=== PATIENT | male | born 1950 | race Caucasian/White ===

== ENCOUNTER 2016-09-28 11:40 | Emergency (ER) | payer MEDICARE ==
[2016-09-28] MEDS ORDERED: methylPREDNISolone Sod Succ/PF 125 MG/2 ML VIAL ONE (12:06)
[2016-09-28 12:13] LABS: #Basophils 0.2 thou/uL (0.0-0.2); #Eosinphils 0.4 thou/uL (0.0-0.7); #Lymphocytes 2.3 thou/uL (1.20-3.40); #Monocytes 1.4 thou/uL (0.11-0.59); #Neutrophils 13.4 thou/uL (1.40-6.50); %Basophils 1.1 % (0.0-1.0); %Eosinophils 2.1 % (0.0-10.0); %Lymphocytes 13.2 % (21.0-51.0); %Monocytes 7.7 % (0.0-10.0); Mean Corpuscular HGB CONC 33.1 g/dL (32.0-36.0); Mean Corpuscular Hemoglobin 27.8 pg (27.0-31.0); Mean Platelet Volume 11.2 fL (7.4-10.4); Platelet Count 246 thou/uL (130-400); Red Blood Cell (RBC) Count 5.41 mill/uL (4.70-6.10); White Blood Cell (WBC) Count 17.6 thou/uL (4.8-10.8)
[2016-09-28 12:28] LABS: Troponin I 0.013 ng/mL (< 0.028)
[2016-09-28 12:29] LABS: ALT (SGPT) 23 U/L (0-55); AST (SGOT) 14 U/L (5-34); Albumin 4.4 g/dL (3.4-4.8); Alkaline Phosphatase 90 U/L (40-150); Anion Gap 18 mmol/L (10-20); BUN (Urea Nitrogen) 16 mg/dL (8.4-25.7); Bilirubin, Total 0.8 mg/dL (0.2-1.2); CK (CPK) 56 U/L (30-200); Calc. Creatinine Clearance 0 mL/min (70-130); Calcium 9.5 mg/dL (7.8-10.44); Carbon Dioxide 19 mmol/L (23-31); Chloride 104 mmol/L (98-107); Estimated GFR-MDRD 73; Globulin 3.1 g/dL (2.4-3.5); Glucose 126 mg/dL (80-115); Protein, Total 7.5 g/dL (5.8-8.1); Sodium 137 mmol/L (136-145)
--- NOTE | 2016-09-28 13:00 | RAD ---
PORTABLE CHEST 1 VIEW: DATE: 09/28/16. TIME: 11:59 a.m. HISTORY: Shortness of breath and cough. FINDINGS/IMPRESSION: The heart size is prominent. No confluent areas of consolidation, pneumothorax, charisse pulmonary jd ma, or pleural effusions are seen. There is no evidence of charisse pulmonary edema. POS: [facility]
== END 2016-09-28 13:31 | disposition short-term general hospital (02) ==
LOC: NAV ERS 11:40
DX: R06.02 Shortness of breath (principal); R07.1 Chest pain on breathing; I10 Essential (primary) hypertension
CPT/HCPCS: 36415; 71010; 80053; 82553; 83880; 84484; 85025; 85379; 93005; 94640; 96374; J2930; J7620

== ENCOUNTER 2017-05-01 13:58 | Emergency (ER) | payer MEDICARE ==
--- NOTE | 2017-05-01 15:26 | RAD ---
RIGHT HIP 2 VIEWS: Date: 05/01/17 HISTORY: Hip pain status post fall. FINDINGS: There are no signs of fracture or dislocation. IMPRESSION: Negative right hip. POS: [facility]
--- NOTE | 2017-05-01 15:28 | RAD ---
AP PELVIS: Date: 05/01/17 HISTORY: Pelvic pain. FINDINGS: The pelvic ring is intact without evidence of fracture. SI joints are symmetric. No diastasis of the symphysis. Minimal arthritic changes of the hips are noted. IMPRESSION: No acute findings. POS: [facility]
--- NOTE | 2017-05-01 15:33 | RAD ---
SACRUM AND COCCYX FOUR VIEWS 05/01/17 HISTORY: Patient is status post fall. The most distal coccygeal segment on the lateral view is somewhat dorsally displaced. However, in rev iewing a 2012 CT almond paste mixer examination, this is similar to that study and therefore appears chronic. I d o not see any definite signs of a fracture. These images do not optimally evaluate the sacrum. A pelv is film was also performed which does not show any sacral abnormality. IMPRESSION: Unremarkable sacrum and coccyx. No acute injury. POS: [facility]
== END 2017-05-01 15:10 | disposition home or self-care (01) ==
LOC: NAV ERS 13:58
DX: S30.0XXA Contusion of lower back and pelvis, initial encounter (principal); S80.811A Abrasion, right lower leg, initial encounter; F20.9 Schizophrenia, unspecified; W19.XXXA Unspecified fall, initial encounter
CPT/HCPCS: 72170; 72220

== ENCOUNTER 2017-12-18 18:56 | Emergency (ER) | payer MEDICARE ==
[2017-12-18 19:33] LABS: #Basophils 0.1 thou/uL (0.0-0.2); #Eosinphils 0.3 thou/uL (0.0-0.7); #Lymphocytes 1.9 thou/uL (1.20-3.40); #Monocytes 0.8 thou/uL (0.11-0.59); %Basophils 1.7 % (0.0-1.0); %Eosinophils 3.3 % (0.0-10.0); %Monocytes 10.2 % (0.0-10.0); %Neutrophils 61.8 % (42.0-75.0); Hemoglobin 14.6 g/dL (14.0-18.0); Mean Corpuscular HGB CONC 32.9 g/dL (32.0-36.0); Mean Corpuscular Hemoglobin 26.8 pg (27.0-31.0); Mean Corpuscular Volume 81.2 fL (78.0-98.0); Mean Platelet Volume 11.1 fL (7.4-10.4); Platelet Count 204 thou/uL (130-400); RBC Distribution Width 12.6 % (11.5-14.5); Red Blood Cell (RBC) Count 5.47 mill/uL (4.70-6.10)
--- NOTE | 2017-12-18 19:37 | RAD ---
TWO VIEWS OF THE CHEST: 12/18/17 COMPARISON: 08/12/17 HISTORY: Cough and shortness of breath for five years. Syncope this morning. FINDINGS: Two views of the chest show normal sized cardiomediastinal silhouette. There is no evidence of consol idation, mass, or pleural effusion. The bones are unremarkable. IMPRESSION: No evidence of acute cardiopulmonary disease. POS: [facility]
[2017-12-18] MEDS ORDERED: Benzonatate 100 MG CAP ONE (19:47)
[2017-12-18 19:49] LABS: ALT (SGPT) 51 U/L (8-55); AST (SGOT) 33 U/L (5-34); Albumin 4.1 g/dL (3.4-4.8); Alkaline Phosphatase 76 U/L (40-150); Anion Gap 16 mmol/L (10-20); BUN (Urea Nitrogen) 14 mg/dL (8.4-25.7); Bilirubin, Total 0.3 mg/dL (0.2-1.2); CK (CPK) 96 U/L (30-200); Calc. Creatinine Clearance 0 mL/min (70-130); Calcium 9.2 mg/dL (7.8-10.44); Carbon Dioxide 23 mmol/L (23-31); Chloride 102 mmol/L (98-107); Estimated GFR-MDRD 83; Globulin 2.7 g/dL (2.4-3.5); Glucose 147 mg/dL (80-115); Potassium 3.8 mmol/L (3.5-5.1); Protein, Total 6.8 g/dL (5.8-8.1); Sodium 137 mmol/L (136-145)
[2017-12-18 19:50] LABS: CKMB 1.8 ng/mL (0-6.6); Troponin I 0.014 ng/mL (< 0.028)
[2017-12-18] MEDS ORDERED: predniSONE 20 MG TAB ONE (20:15)
[2017-12-18] MEDS ORDERED: Azithromycin 250 MG TAB ONE (20:15)
== END 2017-12-18 20:19 | disposition home or self-care (01) ==
LOC: NAV ERS 18:56
DX: J42 Unspecified chronic bronchitis (principal); F20.9 Schizophrenia, unspecified; F41.0 Panic disorder [episodic paroxysmal anxiety]
CPT/HCPCS: 71046; 80053; 82550; 82553; 84484; 85025; 93005; 94640; J7506; J7620

== ENCOUNTER 2018-06-29 17:49 | Outpatient (CLI) | payer MEDICARE ==
--- NOTE | 2018-06-29 19:42 | RAD ---
RADIOGRAPH LUMBAR SPINE 3 VIEWS: 06/29/2018 HISTORY: A 67-year-old male with three days of acute low back pain. COMPARISON: None. FINDINGS: There are five lumbar type vertebrae. Vertebral body heights are maintained. Alignment is normal. Endplate osteophytes at all levels, mostly small. No high-grade disk space narrowing at any level. Degenerative facet changes at L4-L5 and L5-S1. IMPRESSION: 1. No acute compression fracture. 2. Facet osteoarthrosis at lower levels. [place] [] POS: [facility]
--- NOTE | 2018-06-29 19:43 | RAD ---
RADIOGRAPH THORACIC SPINE THREE VIEWS: HISTORY: A 67-year-old male with acute thoracic spine pain. FINDINGS: Vertebral body heights are maintained. There are small and moderate sized bridging osteophytes protr uding into the prevertebral space at multiple levels in the mid and lower thoracic spine. IMPRESSION: 1. No compression fracture. 2. Degenerative disk changes versus DISH (diffuse idiopathic skeletal hyperostosis). POS: [facility]
== END 2018-06-29 17:50 | disposition home or self-care (01) ==
LOC: NAV RAD 17:49
PROVIDERS: ATTEND Nurse Practitioner Adult Health
DX: M54.9 Dorsalgia, unspecified (principal); G89.29 Other chronic pain; M47.816 Spondylosis without myelopathy or radiculopathy, lumbar region
CPT/HCPCS: 72072; 72100

== ENCOUNTER 2018-10-27 22:26 | Emergency (ER) | payer MEDICARE ==
[2018-10-27 23:18] LABS: #Basophils 0.2 thou/uL (0.0-0.2); #Eosinphils 0.4 thou/uL (0.0-0.7); #Lymphocytes 2.9 thou/uL (1.20-3.40); #Monocytes 0.9 thou/uL (0.11-0.59); #Neutrophils 6.2 thou/uL (1.40-6.50); %Basophils 1.6 % (0.0-1.0); %Eosinophils 3.9 % (0.0-10.0); %Lymphocytes 27.5 % (21.0-51.0); %Monocytes 8.6 % (0.0-10.0); %Neutrophils 58.3 % (42.0-75.0); Hemoglobin 14.6 g/dL (14.0-18.0); Mean Corpuscular HGB CONC 31.8 g/dL (32.0-36.0); Mean Corpuscular Hemoglobin 27.4 pg (27.0-31.0); Mean Platelet Volume 11.4 fL (7.4-10.4); Platelet Count 210 thou/uL (130-400); RBC Distribution Width 13.4 % (11.5-14.5); Red Blood Cell (RBC) Count 5.34 mill/uL (4.70-6.10); White Blood Cell (WBC) Count 10.6 thou/uL (4.8-10.8)
[2018-10-27 23:27] LABS: ALT (SGPT) 42 U/L (8-55); AST (SGOT) 32 U/L (5-34); Albumin 4.4 g/dL (3.4-4.8); Alkaline Phosphatase 83 U/L (40-150); Anion Gap 17 mmol/L (10-20); BUN (Urea Nitrogen) 18 mg/dL (8.4-25.7); Bilirubin, Total 0.4 mg/dL (0.2-1.2); Calc. Creatinine Clearance 0 mL/min (70-130); Calcium 9.5 mg/dL (7.8-10.44); Carbon Dioxide 26 mmol/L (23-31); Chloride 102 mmol/L (98-107); Estimated GFR-MDRD 69; Globulin 2.5 g/dL (2.4-3.5); Glucose 128 mg/dL (80-115); Potassium 4.2 mmol/L (3.5-5.1); Protein, Total 6.9 g/dL (5.8-8.1); Sodium 141 mmol/L (136-145)
== END 2018-10-28 00:15 | disposition home or self-care (01) ==
LOC: NAV ERS 22:26
DX: I87.2 Venous insufficiency (chronic) (peripheral) (principal); F20.9 Schizophrenia, unspecified; F41.0 Panic disorder [episodic paroxysmal anxiety]; Z79.899 Other long term (current) drug therapy
CPT/HCPCS: 80053; 85025; 85379; 99283

== ENCOUNTER 2024-04-17 12:14 | Emergency (ER) | payer MEDICARE ==
[2024-04-17 13:04] LABS: #Basophils 0.1 thou/uL (0.0-0.2); #Eosinophils 0.2 thou/uL (0.0-0.7); #Lymphocytes 1.6 thou/uL (1.20-3.40); #Monocytes 0.6 thou/uL (0.11-0.59); #Neutrophils 6.4 thou/uL (1.40-6.50); %Eosinophils 1.8 % (0.0-10.0); %Lymphocytes 18.2 % (21.0-51.0); %Monocytes 6.9 % (0.0-10.0); %Neutrophils 72.1 % (42.0-75.0); Hematocrit 50.3 % (42.0-52.0); Hemoglobin 16.3 g/dL (14.0-18.0); Mean Corpuscular HGB CONC 32.5 g/dL (32.0-36.0); Mean Corpuscular Hemoglobin 27.3 pg (27.0-31.0); Mean Platelet Volume 11.1 fL (7.4-10.4); Platelet Count 256 10x3/uL (130-400); Red Blood Cell (RBC) Count 5.98 mill/uL (4.70-6.10); White Blood Cell (WBC) Count 8.9 10x3/uL (4.8-10.8)
[2024-04-17] MEDS ORDERED: Sodium Chloride 0.9% 1,000 ML ONE (13:11)
[2024-04-17 13:31] LABS: ALT (SGPT) 53 U/L (8-55); AST (SGOT) 32 U/L (5-34); Albumin 3.8 g/dL (3.4-4.8); Alkaline Phosphatase 94 U/L (40-110); Anion Gap 34 mmol/L (10-20); BUN (Urea Nitrogen) 9 mg/dL (8.4-25.7); Calc. Creatinine Clearance 0 mL/min (70-130); Calcium 9.6 mg/dL (7.8-10.44); Carbon Dioxide 22 mmol/L (23-31); Chloride 99 mmol/L (98-107); Estimated GFR 51; Globulin 3.7 g/dL (2.4-3.5); Glucose 216 mg/dL (83-110); Lipase 20 U/L (8-78); Potassium 3.6 mmol/L (3.5-5.1); Protein, Total 7.5 g/dL (5.8-8.1)
[2024-04-17 13:33] LABS: Troponin I Less than 0.010 ng/mL (< 0.028)
[2024-04-17 13:36] LABS: Base Excess-Venous 0.2 mmol/L (-2.0 to 3.0); Bicarbonate (HCO3v) 26.2 mmol/L (22.0-28.0); CO2 Tension (PvCO2) 45.4 mmHg (42.0-51.0); Calcium, Ionized 1.15 mmol/L (1.15-1.33); Chloride 102 mmol/L (98-107); Hemoglobin - Calc 18.2 g/dL (14.0-18.0); Potassium 3.7 mmol/L (3.5-5.1); Sodium 139 mmol/L (138-145); T. Carbon Dioxide 27.6 mmol/L (22.0-28.0); vO2 Saturation-calc 68.1 % (60.0-85.0)
[2024-04-17 13:43] LABS: Sodium 151 mmol/L (136-145)
[2024-04-17 14:22] LABS: Bilirubin Moderate (Negative); Blood, Urine Negative (Negative); Glucose, Urine (Dipstick) 250 mg/dL (Negative); Ketone, Urine 15 mg/dL (Negative); Leukocyte Negative (Negative); Nitrite Negative (Negative); Protein, Urine (Dipstick) 100 mg/dL (Neg-Trace); Specific Gravity, Urine 1.025 (1.005-1.030); pH, Urine 5.5 (5.0-9.0)
[2024-04-17 14:28] LABS: Clarity Hazy (Clear)
[2024-04-17 14:30] LABS: Bacteria/HPF Rare-Few HPF (None Seen); CAUTI Indications for Culture Dysuria,urgency,freq; Mucous/LPF 3+ LPF (<2+); RBC/HPF 0-3 HPF (0-3); Squamous Epithelial 0-3 HPF (0-3); WBC/HPF 0-3 HPF (0-3)
[2024-04-17 14:32] LABS: Urine Culture Reflex No No
[2024-04-17] MEDS ORDERED: Dextrose 5% in Water 1,000 ML ONE (14:40)
[2024-04-17 16:13] LABS: Troponin I Less than 0.010 ng/mL (< 0.028)
[2024-04-17 16:19] LABS: Anion Gap 15 mmol/L (10-20); BUN (Urea Nitrogen) 11 mg/dL (8.4-25.7); Calc. Creatinine Clearance 0 mL/min (70-130); Calcium 8.8 mg/dL (7.8-10.44); Carbon Dioxide 25 mmol/L (23-31); Chloride 102 mmol/L (98-107); Estimated GFR 65; Glucose 127 mg/dL (83-110); Potassium 3.8 mmol/L (3.5-5.1); Sodium 138 mmol/L (136-145)
== END 2024-04-17 16:20 | disposition home or self-care (01) ==
LOC: NAV ERS 12:14
DX: E87.0 Hyperosmolality and hypernatremia (principal); E11.9 Type 2 diabetes mellitus without complications; J44.9 Chronic obstructive pulmonary disease, unspecified; R55 Syncope and collapse
CPT/HCPCS: 70450; 71045; 80053; 81001; 82274; 82330; 82803; 83605; 83690; 83880; 83935; 84484; 85025; 85379; 93005; 96360; J7030; J7070